=== PATIENT | female | born 1970 | race Caucasian/White ===

== ENCOUNTER 2017-01-25 01:10 | Emergency (ER) | payer MEDICAID ==
[~2017-01-25] VITALS: Ht 147.3 cm; Wt 49.9 kg
[2017-01-25 01:18] VITALS: BP 128/76
--- NOTE | 2017-01-25 04:44 | NUR ---
TO ER BED 4
--- NOTE | 2017-01-25 05:07 | NUR ---
46Y F BIB DAUGHTER C/O OF EPIGASTRIC PAIN RADIATING TO BACK SINCE YESTERDAY. DENIES N/V/D AND PAIN IS 05/06.
[2017-01-25 06:57] VITALS: BP 120/73
--- NOTE | 2017-01-25 06:57 | NUR ---
Patient discharged with v/s stable. Written and verbal after care instructions given and explained. Patient alert, oriented and verbalized understanding of instructions. Ambulatory with steady gait. All questions addressed prior to discharge. ID band removed. Patient advised to follow up with PMD. Rx of TYLENOL #3 given. Patient educated on indication of medication including possible reaction and side effects. Opportunity to ask questions provided and answered.
== END 2017-01-25 06:57 | disposition home or self-care (01) ==
LOC: MED 01:10
DX: K80.20 Calculus of gallbladder without cholecystitis without obstruction (principal)
CPT/HCPCS: 36415; 76705; 80053; 81002; 81025; 83690; 85025; 99285; Q0092

== ENCOUNTER 2017-12-08 21:57 | Emergency (ER) | payer MEDICAID ==
[~2017-12-08] VITALS: Ht 142.2 cm; Wt 53.8 kg
[2017-12-08 22:10] VITALS: BP 134/90
--- NOTE | 2017-12-08 22:16 | NUR ---
PATIENT AMBULATED TO ER BED 11.
--- NOTE | 2017-12-08 22:20 | NUR ---
47 F CAME IN TO ER WITH C/O ABD PAIN 8/10 IN THE RUQ AT THIS TIME. PATIENT STATES NAUSEA AND VOMITING WITH EATING ; SKIN IS PINK/WARM/DRY; AAOX4 WITH EVEN AND STEADY GAIT; NO SOB NOTED, HR EVEN AND REGULAR; PT DENIES ANY FEVER, CP, SOB, OR COUGH AT THIS TIME; PATIENT ; VSS; PATIENT POSITIONED FOR COMFORT; HOB ELEVATED; BEDRAILS UP X2; BED DOWN. ER MD MADE AWARE OF PT STATUS.
[2017-12-08 22:49] LABS: EOSINOPHILS # (AUTO) 0.2 K/uL (0-0.4); HEMOGLOBIN 11.5 g/dL (12.0-16.0)
[2017-12-08 23:01] LABS: BILIRUBIN,URINE NEGATIVE (NEGATIVE); BLOOD, URINE 1+ (NEGATIVE); COLOR,URINE YELLOW (YELLOW); LEUKOCYTE ESTERASE ,URINE NEGATIVE (NEGATIVE); NITRITE, URINE NEGATIVE (NEGATIVE); UGLUCOSE NEGATIVE (NEGATIVE)
[2017-12-08 23:02] LABS: ANION GAP 9.1 (8-16); CARBON DIOXIDE 30.3 mmol/L (21-32); CREATININE 0.8 mg/dL (0.6-1.3); POTASSIUM 3.4 mmol/L (3.5-5.1)
[2017-12-08 23:06] LABS: BASOPHILS % (AUTO) 0.5 % (0.0-2.0); EOSINOPHILS % (AUTO) 3.3 % (0.0-4.0); HEMATOCRIT 35.4 % (36-48); LYMPHOCYTES # (AUTO) 2.5 K/uL (2.5-16.5); LYMPHOCYTES % (AUTO) 52.4 % (20.5-51.1); MEAN CORPUSCULAR HEMOGLOBIN 28 pg (27-31); MEAN CORPUSCULAR HGB CONC 32 g/dL (33-37); MEAN CORPUSCULAR VOLUME 85.4 fL (80-94); MONOCYTES # (AUTO) 0.4 K/uL (0.8-1.0); MONOCYTES % (AUTO) 8.8 % (1.7-9.3); NEUTROPHILS # (AUTO) 1.7 K/uL (1.8-7.7); PLATELET COUNT (AUTO) 198 K/uL (140-450); RED BLOOD CELL COUNT(AUTO) 4.15 MIL/uL (4.20-5.40); RED CELL DISTRIBUTION WIDTH 13.6 % (11.6-13.7); WHITE BLOOD COUNT (AUTO) 4.8 K/uL (4.8-10.8)
[2017-12-08 23:07] LABS: APPEARANCE,URINE SLIGHTLY HAZY (CLEAR)
[2017-12-08 23:08] LABS: ALBUMIN 3.6 g/dL (3.4-5.0); TOTAL BILIRUBIN 0.2 mg/dL (0.0-1.0)
[2017-12-08 23:19] LABS: CALCIUM OXALATE CRYSTALS,UR 0-10 /HPF (None Seen); RBC,URINE 3-10 (FEW) /HPF (0-5); WBC,URINE 0-5 (RARE) /HPF (0-5)
--- NOTE | 2017-12-09 01:02 | NUR ---
Note undone in EDM - 12/09/17 at 0106 by [email or web address] 47 F CAME IN TO ER WITH C/O ABD PAIN 04/05 IN THE RUQ AT THIS TIME. PATIENT STATES NAUSEA AND VOMITING WITH EATING ; SKIN IS PINK/WARM/DRY; AAOX4 WITH EVEN AND STEADY GAIT; NO SOB NOTED, HR EVEN AND REGULAR; PT DENIES ANY FEVER, CP, SOB, OR COUGH AT THIS TIME; PATIENT ; VSS; PATIENT POSITIONED FOR COMFORT; HOB ELEVATED; BEDRAILS UP X2; BED DOWN. ER MD MADE AWARE OF PT STATUS.
[2017-12-09 01:07] VITALS: BP 132/86
== END 2017-12-09 00:20 | disposition home or self-care (01) ==
LOC: MED 21:57
DX: K82.9 Disease of gallbladder, unspecified (principal)
CPT/HCPCS: 36415; 76705; 80053; 81001; 81025; 82150; 83690; 85025; 99284; Q0092

== ENCOUNTER 2020-07-20 09:54 | Emergency (ER) | payer MEDICAID, SELFPAY ==
[~2020-07-20] VITALS: Ht 157.5 cm; Wt 79.4 kg
--- NOTE | 2020-07-20 10:01 | NUR ---
PATIENT AMBULATED TO ER BED 08
--- NOTE | 2020-07-20 10:04 | NUR ---
Dr. Russell at pt bedside for evaluation.
[2020-07-20 10:05] VITALS: BP 131/81
--- NOTE | 2020-07-20 10:19 | NUR ---
observed pt saturations 89-91% accompanied with shallow tachypneic patter, provided with 2LPM n/c. saturations increased to 96%.
--- NOTE | 2020-07-20 10:20 | NUR ---
Kelly swab collected via [employer] route and sent to lab.
--- NOTE | 2020-07-20 10:25 | NUR ---
see complete assessment.
[2020-07-20 10:26] VITALS: BP 114/66
--- NOTE | 2020-07-20 10:33 | NUR ---
XR at bedside.
[2020-07-20] MEDS ORDERED: DOPPLER MC ONE (10:40)
[2020-07-20] MEDS ORDERED: HYDROXYCHLOROQUINE 200 MG TAB PO ONE (10:50)
[2020-07-20] MEDS ORDERED: DEXAMETHASONE 4 MG/ML VIAL IVP ONE (10:50)
[2020-07-20] MEDS ORDERED: ZINC SULF 220 MG CAP PO ONE (10:50)
--- NOTE | 2020-07-20 11:29 | NUR ---
Dr. Russell at bedside for pt d/c .
--- NOTE | 2020-07-20 11:31 | NUR ---
pt discharged by Dr. Russell with VSS. Addendum: 07/20/20 at 1136 by [facility] of albuterol, plaquenil, zinc, and decadron
== END 2020-07-20 11:31 | disposition home or self-care (01) ==
LOC: MED 09:54
DX: U07.1 COVID-19 (principal); J12.89 Other viral pneumonia
CPT/HCPCS: 71045; 81025; 87426; 96374; 99284; J1100

== ENCOUNTER 2022-02-09 22:04 | Emergency (ER) | payer MEDICAID ==
[~2022-02-09] VITALS: Ht 152.4 cm; Wt 54.4 kg
[2022-02-09 22:07] VITALS: BP 135/74
--- NOTE | 2022-02-10 00:26 | NUR ---
PT TAKEN TO BED 3
--- NOTE | 2022-02-10 00:45 | NUR ---
51 Y.O M BIB DAUGHTER C/O PAIN RIGHT UPPER CHEST AND RIGHT UPPER BACK X 9 HOURS. 8/10 PAIN. NO SOB, N/V/D, AND PAIN IN EXTREMITIES. VITALS WNL, A&OX4, SKIN INTACT AND PT RESTING IN BED. [facility]
[2022-02-10] MEDS ORDERED: diazePAM 5 MG TAB PO ONE (00:50)
[2022-02-10] MEDS ORDERED: KETOROLAC 30 MG/ML VIAL IM ONE (00:50)
[2022-02-10] MEDS ORDERED: DIAZ5TAB6 PO (01:02)
[2022-02-10] MEDS ORDERED: NAPR-54 PO (01:02)
[2022-02-10 01:30] VITALS: BP 135/74
--- NOTE | 2022-02-10 01:30 | NUR ---
Patient discharged with v/s stable. Written and verbal after care instructions given and explained. Patient alert, oriented and verbalized understanding of instructions. Ambulatory with steady gait. All questions addressed prior to discharge. ID band removed. Patient advised to follow up with PMD. Rx of VALIUM AND NAPROXEN given. Patient educated on indication of medication including possible reaction and side effects. Opportunity to ask questions provided and answered.
== END 2022-02-10 01:30 | disposition home or self-care (01) ==
LOC: MED 22:04
DX: R07.89 Other chest pain (principal); M54.9 Dorsalgia, unspecified; Z79.899 Other long term (current) drug therapy
CPT/HCPCS: 71045; 93005; 96372; 99283; J1885